=== PATIENT | male | born 1955 | race African-American/Black ===

== ENCOUNTER 2018-08-23 08:17 | Day surgery (SDC) | payer OTHER ==
[2018-08-20 11:57] VITALS: BP 133/83
[2018-08-20 13:09] LABS: CHLORIDE 99 mmol/L (98-107)
[2018-08-20 13:17] LABS: ALANINE AMINOTRANSFERASE 33 U/L (12-78); ALKALINE PHOSPHATASE 87 U/L (45-117); ANION GAP 8 mmol/L (5-15); BILIRUBIN,TOTAL 1.8 mg/dL (0.2-1.0); CALCIUM 9.9 mg/dL (8.5-10.1); CREATININE 1.01 mg/dL (0.7-1.3); TOTAL PROTEIN 8.5 g/dL (6.4-8.2)
[~2018-08-23] VITALS: Ht 170.2 cm; Wt 57.5 kg
[~2018-08-23 08:17] MED LIST: CANA300T PO; CLIN150C14 PO; GLIP10TA13 PO; LISI-167 PO; METF500T17 PO; PRAV10TA2 PO; SITA100T PO
[2018-08-23] MEDS ORDERED: LACTATED RINGERS 1,000 ML IV SCH (09:31)
[2018-08-23] MEDS ORDERED: ONDANSETRON 2MG/ML, 2ML IV PRN (10:00)
[2018-08-23] MEDS ORDERED: METOCLOPRAMIDE 5 MG/ML, 2ML IV PRN (10:00)
[2018-08-23] MEDS ORDERED: OXYcodone 5 MG/5 ML ORAL.SOL UDC PO PRN (10:00)
[2018-08-23] MEDS ORDERED: MEPERIDINE/PF 25MG/0.5ML IVPush PRN (10:00)
[2018-08-23] MEDS ORDERED: KETOROLAC 30 MG/1 ML IV PRN (10:00)
[2018-08-23] MEDS ORDERED: LORazepam 2 MG/ML, 1ML IVPush PRN (10:00)
[2018-08-23] MEDS ORDERED: METOPROLOL 1 MG/ML, 5ML IV PRN (10:00)
[2018-08-23] MEDS ORDERED: LABETALOL 5MG/ML, 20ML IV PRN (10:00)
[2018-08-23] MEDS ORDERED: HYDROmorphone 2 MG/ML, 1ML IVPush PRN (10:00)
[2018-08-23] MEDS ORDERED: EPHEDRINE 50 MG/ML, 1ML IVPush PRN (10:00)
[2018-08-23] MEDS ORDERED: ACETAMINOPHEN 325 MG TABLET PO PRN (10:00)
[2018-08-23] MEDS ORDERED: DEXAMETHASONE 4 MG/ML, 1ML IV PRN (10:00)
[2018-08-23] MEDS ORDERED: FENTANYL PF 100 MCG/2ML IV PRN (10:00)
[2018-08-23] MEDS ORDERED: DIPHENHYDRAMINE 50 MG/ML, 1ML IVPush PRN (10:00)
[2018-08-23] MEDS ORDERED: EPHEDRINE 50 MG/ML, 1ML IM PRN (10:00)
[2018-08-23] MEDS ORDERED: MIDAZOLAM 1 MG/ML, 2ML IV PRN (10:00)
[2018-08-23] MEDS ORDERED: GLYCOPYRROLATE 0.2MG/1ML, 5ML ONE (10:55)
[2018-08-23] MEDS ORDERED: DEXAMETHASONE 4 MG/ML, 1ML ONE (10:55)
[2018-08-23] MEDS ORDERED: ROCURONIUM 10MG/ML,5ML ONE (10:55)
[2018-08-23] MEDS ORDERED: PROPOFOL 10 MG/ML, 20ML ONE (10:55)
[2018-08-23] MEDS ORDERED: LIDOCAINE-MPF 2%, 2ML ONE (10:55)
[2018-08-23] MEDS ORDERED: FENTANYL PF 250 MCG/5ML ONE (10:56)
[2018-08-23] MEDS ORDERED: MIDAZOLAM 1 MG/ML, 2ML ONE (10:56)
[2018-08-23] MEDS ORDERED: LIDOCAINE-MPF 2% ,5ML ONE (11:40)
[2018-08-23] MEDS ORDERED: BUPIVACAINE/PF-EPI 0.5% 1:200K ONE (12:18)
[2018-08-23] MEDS ORDERED: OXYcodone 5 MG/5 ML ORAL.SOL UDC ONE (12:56)
[2018-08-23] MEDS ORDERED: ACETAMINOPHEN 650 MG/20.3 ML UDC ONE (12:56)
== END 2018-08-23 16:05 | disposition home or self-care (01) ==
LOC: OUT 08:17
PROVIDERS: ATTEND Surgery
DX: L02.31 Cutaneous abscess of buttock (principal); E11.9 Type 2 diabetes mellitus without complications; I10 Essential (primary) hypertension
CPT/HCPCS: 10061; 36415; 80053; 82962; 85014; 85018; 87070; 87075; 87077; 87205; 93005; J1100; J2250; J2704; J3010; J3490; J7120; 87147; 87186